=== PATIENT | female | born 1975 | race Caucasian/White ===

== ENCOUNTER 2023-07-16 15:59 | Emergency (ER) | payer MEDICAID, OTHER ==
[~2023-07-16] VITALS: Ht 162.6 cm; Wt 126.1 kg
[2023-07-16] MEDS ORDERED: AMLO10TA4 PO (17:27)
[2023-07-16 18:09] LABS: BASOPHILS # (AUTO) 0.1 K/UL (0.0-0.2); BASOPHILS % (AUTO) 0.9 % (0.0-2.0); EOSINOPHILS # (AUTO) 0.3 K/uL (0.0-0.7); HEMATOCRIT 34.4 % (31.2-41.9); HEMOGLOBIN 11.2 g/dL (10.9-14.3); LYMPHOCYTES # (AUTO) 1.4 K/uL (0.8-4.8); LYMPHOCYTES % (AUTO) 22.6 % (20.5-51.5); MEAN CORPUSCULAR HEMOGLOBIN 29.2 uug (24.7-32.8); MEAN CORPUSCULAR HGB CONC 33 g/dL (32.3-35.6); MEAN CORPUSCULAR VOLUME 89.6 fL (75.5-95.3); MONOCYTES # (AUTO) 0.3 K/uL (0.1-1.30); NEUTROPHILS # (AUTO) 4.1 K/uL (1.8-8.9); NEUTROPHILS % (AUTO) 66.5 % (38.5-71.5); PLATELET COUNT (AUTO) 138 K/uL (179-408); RED BLOOD CELL COUNT(AUTO) 3.84 MIL/uL (3.63-4.92); RED CELL DISTRIBUTION WIDTH 14.3 % (12.3-17.7); WHITE BLOOD COUNT (AUTO) 6.2 K/uL (3.8-11.8)
[2023-07-16 18:18] LABS: CALCIUM 9.1 mg/dL (8.5-10.1); CARBON DIOXIDE 30 mmol/L (21-32); CHLORIDE 104 mmol/L (98-107); CREATININE 0.9 mg/dL (0.6-1.3); GLUCOSE 187 mg/dL (74-106); POTASSIUM 3.7 mmol/L (3.5-5.1); SODIUM SERUM 140 mmol/L (136-145); UREA NITROGEN, BLOOD 17 mg/dL (7-18)
[2023-07-16 18:35] LABS: ALANINE AMINOTRANSFERASE 28 U/L (14-59); ALBUMIN 3.2 g/dL (3.4-5.0); ALKALINE PHOSPHATASE 68 U/L (50-136); ASPARTATE AMINOTRANSFERASE 14 U/L (15-37); BILIRUBIN,DIRECT 0.1 mg/dL (0.0-0.2); BILIRUBIN,TOTAL 0.2 mg/dL (0.2-1.0); NT-PRO BNP 91 pg/mL (0-125); TOTAL PROTEIN, SERUM 6.8 g/dL (6.4-8.2)
[2023-07-16] MEDS ORDERED: METF-494 PO (19:03)
[2023-07-16] MEDS ORDERED: ENAL20TA70 PO (19:03)
[2023-07-16] MEDS ORDERED: FURO-152 PO (19:03)
[2023-07-16] MEDS ORDERED: POTA-194 PO (19:03)
[2023-07-16] MEDS ORDERED: CLON0.1T PO (19:03)
[2023-07-16 20:01] VITALS: BP 158/90; O2SAT 98
== END 2023-07-16 20:01 | disposition home or self-care (01) ==
LOC: ER 15:59
DX: R60.0 Localized edema (principal); R10.2 Pelvic and perineal pain; E11.65 Type 2 diabetes mellitus with hyperglycemia; I10 Essential (primary) hypertension; E66.9 Obesity, unspecified; Z68.42 Body mass index [BMI] 45.0-49.9, adult; Z79.899 Other long term (current) drug therapy
CPT/HCPCS: 36415; 71045; 84484; 85025; 85730; 93005; A4663

== ENCOUNTER 2023-07-25 05:15 | Inpatient (IN) | payer OTHER ==
[~2023-07-25] VITALS: Ht 162.6 cm; Wt 79.4 kg
[~2023-07-25 05:15] MED LIST: AMLO10TA4 PO; CLON0.1T PO; ENAL20TA70 PO; FURO-152 PO; METF-494 PO; POTA-194 PO
[2023-07-25] MEDS ORDERED: ONDANSETRON 4 MG/2 ML VIAL IV ONE (05:45)
[2023-07-25] MEDS ORDERED: CLONIDINE HCL 0.1 MG TABLET PO ONE (05:45)
[2023-07-25] MEDS ORDERED: hydrALAZINE HCL 20 MG/1 ML VIAL IV ONE (05:45)
[2023-07-25] MEDS ORDERED: NITROGLYCERIN OINT 1 GM PACKET TP ONE ×2 (05:45→05:57)
[2023-07-25] MEDS ORDERED: HYDROMORPHONE 1 MG/1 ML DISP.SYRIN IV ONE (05:45)
[2023-07-25] MEDS ORDERED: FUROSEMIDE 20 MG/2 ML VIAL IVP ONE (05:45)
[2023-07-25] MEDS ORDERED: ONDANSETRON 4 MG/2 ML VIAL ONE (05:57)
[2023-07-25] MEDS ORDERED: FUROSEMIDE 40 MG/4 ML VIAL ONE (05:57)
[2023-07-25] MEDS ORDERED: hydrALAZINE HCL 20 MG/1 ML VIAL ONE (05:58)
[2023-07-25] MEDS ORDERED: CLONIDINE HCL 0.1 MG TABLET ONE (05:58)
[2023-07-25] MEDS ORDERED: HYDROMORPHONE 1 MG/1 ML DISP.SYRIN ONE (05:58)
[2023-07-25] MEDS ORDERED: FLAS1KIT2 TP (06:23)
[2023-07-25] MEDS ORDERED: CLON0.1T PO (06:23)
[2023-07-25] MEDS ORDERED: FLAS1EAC2 TP (06:23)
[2023-07-25] MEDS ORDERED: LISI40TA13 PO (06:23)
[2023-07-25 06:25] VITALS: O2SAT 96
[2023-07-25 06:30] LABS: BASOPHILS # (AUTO) 0.1 K/UL (0.0-0.2); BASOPHILS % (AUTO) 1.4 % (0.0-2.0); EOSINOPHILS # (AUTO) 0.3 K/uL (0.0-0.7); EOSINOPHILS % (AUTO) 6.4 % (0.0-7.0); HEMOGLOBIN 11.5 g/dL (10.9-14.3); LYMPHOCYTES # (AUTO) 1.1 K/uL (0.8-4.8); LYMPHOCYTES % (AUTO) 20.8 % (20.5-51.5); MEAN CORPUSCULAR HEMOGLOBIN 29.3 uug (24.7-32.8); MEAN CORPUSCULAR HGB CONC 33 g/dL (32.3-35.6); MEAN CORPUSCULAR VOLUME 89.6 fL (75.5-95.3); MONOCYTES # (AUTO) 0.4 K/uL (0.1-1.30); NEUTROPHILS # (AUTO) 3.4 K/uL (1.8-8.9); NEUTROPHILS % (AUTO) 63.4 % (38.5-71.5); PLATELET COUNT (AUTO) 130 K/uL (179-408); RED CELL DISTRIBUTION WIDTH 14.4 % (12.3-17.7); WHITE BLOOD COUNT (AUTO) 5.3 K/uL (3.8-11.8)
[2023-07-25] MEDS ORDERED: IPRATROPIUM BROMIDE 0.5 MG/2.5 ML NEBU NEB ONE (06:30)
[2023-07-25] MEDS ORDERED: ALBUTEROL SULFATE 2.5 MG/3 ML NEBU NEB ONE (06:30)
[2023-07-25] MEDS ORDERED: ALBUTEROL SULFATE 2.5 MG/3 ML NEBU ONE (06:34)
[2023-07-25] MEDS ORDERED: IPRATROPIUM BROMIDE 0.5 MG/2.5 ML NEBU ONE (06:34)
[2023-07-25 06:38] LABS: CALCIUM 9.1 mg/dL (8.5-10.1); CARBON DIOXIDE 29 mmol/L (21-32); CHLORIDE 102 mmol/L (98-107); CREATININE 0.7 mg/dL (0.6-1.3); GLUCOSE 148 mg/dL (74-106); POTASSIUM 3.7 mmol/L (3.5-5.1); SODIUM SERUM 136 mmol/L (136-145); UREA NITROGEN, BLOOD 8 mg/dL (7-18)
[2023-07-25 06:41] LABS: DIFFERENTIAL COMMENT 1
[2023-07-25 06:50] VITALS: O2SAT 99
[2023-07-25 06:51] LABS: ALANINE AMINOTRANSFERASE 23 U/L (14-59); ALBUMIN 3.5 g/dL (3.4-5.0); ALKALINE PHOSPHATASE 69 U/L (50-136); ASPARTATE AMINOTRANSFERASE 7 U/L (15-37); BILIRUBIN,DIRECT 0.1 mg/dL (0.0-0.2); BILIRUBIN,TOTAL 0.5 mg/dL (0.2-1.0); NT-PRO BNP 74 pg/mL (0-125); TOTAL PROTEIN, SERUM 7.1 g/dL (6.4-8.2)
[2023-07-25 07:36] LABS: *BILIRUBIN,URIN NEGATIVE (NEGATIVE); *BLOOD, URINE NEGATIVE (NEGATIVE); *CLARITY,URINE CLEAR (CLEAR); *COLOR,URINE YELLOW (YELLOW); *KETONES,URINE NEGATIVE (NEGATIVE); *PROTEIN,URINE NEGATIVE (NEGATIVE); *UROBILINOGEN,URINE 0.2 E.U./dl (NORMAL); LEUKOCYTE ESTERASE ,URINE NEGATIVE (NEGATIVE); NITRITE, URINE NEGATIVE (NEGATIVE); PH,URINE 6.5 (5.0-8.0); UGLUCOSE NEGATIVE (NEGATIVE)
[2023-07-25 07:50] LABS: *AMPHETAMINE, URINE NEGATIVE (NEGATIVE); *BARBITURATE, URINE NEGATIVE (NEGATIVE); *BENZODIAZEPINE, URINE NEGATIVE (NEGATIVE); *CANNABINOID, URINE NEGATIVE (NEGATIVE); *COCCAINE, URINE NEGATIVE (NEGATIVE); *OPIATE, URINE NEGATIVE (NEGATIVE); *PHENCYCLIDINE SCREEN,URINE NEGATIVE (NEGATIVE); FENTANYL, URINE NEGATIVE (NEGATIVE)
[2023-07-25] MEDS ORDERED: ACETAMINOPHEN 325 MG TABLET PO ONE (11:30)
[2023-07-25] MEDS ORDERED: ACETAMINOPHEN ES 500 MG TABLET ONE (11:41)
[2023-07-25] MEDS ORDERED: ACETAMINOPHEN 325 MG TABLET PO PRN (12:00)
[2023-07-25] MEDS ORDERED: Medication Not On Formulary EA (Metformin Hcl (Metformin Hcl Er) 1 TAB) PO SCH (12:00)
[2023-07-25] MEDS ORDERED: CLONIDINE HCL 0.1 MG TABLET PO PRN ×2 (12:00→16:28)
[2023-07-25] MEDS ORDERED: TEMAZEPAM 15 MG CAPSULE PO PRN (12:00)
[2023-07-25] MEDS ORDERED: ONDANSETRON 4 MG/2 ML VIAL IV PRN (12:00)
[2023-07-25] MEDS ORDERED: HYDROCODONE/APAP 5-325MG TABLET PO PRN (12:00)
[2023-07-25] MEDS ORDERED: ALBUTEROL SULFATE 2.5 MG/ 0.5 ML NEBU NEB PRN (15:00)
[2023-07-25] MEDS ORDERED: GUAIFENESIN/DEXTROMETHORPHAN 5 ML UDC PO PRN (15:00)
[2023-07-25 15:45] VITALS: BP 138/81; TEMP 98.2; O2SAT 97
[2023-07-25] MEDS: FUROSEMIDE 20 MG TABLET PO SCH (16:37)
[2023-07-25] MEDS: AMLODIPINE 10 MG TABLET PO SCH (16:37)
[2023-07-25] MEDS: POTASSIUM CHLORIDE 20 MEQ TAB.PRT.SR PO SCH (16:37)
[2023-07-25] MEDS: LISINOPRIL 20 MG TABLET PO SCH (16:37)
[2023-07-25] MEDS ORDERED: levoFLOXacin 500 MG/D5W 500 MG in PREMIXED 1 EACH IV SCH (20:15)
[2023-07-25 20:44] VITALS: BP 146/91; TEMP 98.3; O2SAT 97
[2023-07-25] MEDS ORDERED: DOCUSATE SODIUM 250 MG CAPSULE PO SCH (21:00)
[2023-07-25] MEDS ORDERED: DOCUSATE SODIUM 100 MG CAPSULE PO SCH (21:00)
[2023-07-25] MEDS ORDERED: levoFLOXacin 500 MG/D5W 100 ML ONE (21:03)
[2023-07-25] MEDS: methylPREDNISolone SOD SUCC 40 MG/ML VIAL IV SCH (21:13)
[2023-07-26 04:55] VITALS: BP 164/76; TEMP 98.2; O2SAT 95
[2023-07-26] MEDS: methylPREDNISolone SOD SUCC 40 MG/ML VIAL IV SCH (06:05)
[2023-07-26 06:42] LABS: BASOPHILS % (AUTO) 0.3 % (0.0-2.0); EOSINOPHILS % (AUTO) 0.1 % (0.0-7.0); HEMATOCRIT 38.9 % (31.2-41.9); HEMOGLOBIN 12.7 g/dL (10.9-14.3); LYMPHOCYTES # (AUTO) 0.9 K/uL (0.8-4.8); LYMPHOCYTES % (AUTO) 16.9 % (20.5-51.5); MEAN CORPUSCULAR HEMOGLOBIN 29.1 uug (24.7-32.8); MEAN CORPUSCULAR HGB CONC 33 g/dL (32.3-35.6); MEAN CORPUSCULAR VOLUME 89.4 fL (75.5-95.3); MONOCYTES # (AUTO) 0.1 K/uL (0.1-1.30); MONOCYTES % (AUTO) 1.5 % (0.0-11.0); NEUTROPHILS # (AUTO) 4.5 K/uL (1.8-8.9); NEUTROPHILS % (AUTO) 81.2 % (38.5-71.5); PLATELET COUNT (AUTO) 156 K/uL (179-408); RED BLOOD CELL COUNT(AUTO) 4.35 MIL/uL (3.63-4.92); RED CELL DISTRIBUTION WIDTH 14.1 % (12.3-17.7); WHITE BLOOD COUNT (AUTO) 5.6 K/uL (3.8-11.8)
[2023-07-26 07:00] LABS: DIFFERENTIAL COMMENT 1
[2023-07-26] MEDS ORDERED: PANTOPRAZOLE SODIUM 40 MG TABLET.DR PO SCH (07:00)
[2023-07-26 07:10] LABS: THYROID STIMULATING HORMONE 0.351 mIU/mL (0.358-3.740)
[2023-07-26 07:54] LABS: ALBUMIN 3.6 g/dL (3.4-5.0); BILIRUBIN,TOTAL 0.4 mg/dL (0.2-1.0); CALCIUM 9.4 mg/dL (8.5-10.1); CREATININE 0.8 mg/dL (0.6-1.3); MAGNESIUM 1.9 mg/dL (1.8-2.4); PHOSPHOROUS 3.2 mg/dL (2.5-4.9); POTASSIUM 4.2 mmol/L (3.5-5.1); TOTAL PROTEIN, SERUM 7.7 g/dL (6.4-8.2)
[2023-07-26] MEDS: AMLODIPINE 10 MG TABLET PO SCH (08:09)
[2023-07-26] MEDS: POTASSIUM CHLORIDE 20 MEQ TAB.PRT.SR PO SCH (08:09)
[2023-07-26] MEDS: LISINOPRIL 20 MG TABLET PO SCH (08:09)
[2023-07-26] MEDS: FUROSEMIDE 20 MG TABLET PO SCH (08:09)
[2023-07-26] MEDS ORDERED: FUROSEMIDE 20 MG/2 ML VIAL IV ONE (09:00)
[2023-07-26] MEDS ORDERED: AMOXICILLIN-CLAVUL 875-125MG TABLET PO SCH (09:00)
[2023-07-26] MEDS ORDERED: METFORMIN XR 500 MG TAB.SR.24H PO SCH (09:00)
[2023-07-26 11:30] VITALS: BP 150/91; TEMP 98.7; O2SAT 96
[2023-07-26] MEDS ORDERED: AMOX1TAB16 PO (12:16)
[2023-07-26] MEDS ORDERED: METH4TAB3 PO (12:16)
[2023-07-26] MEDS ORDERED: ALBU8.5H8 INH (12:16)
== END 2023-07-26 13:20 | disposition home or self-care (01) | DRG 145 ==
LOC: ER 05:19 → TELE3 14:36 → MEDSURG3 15:50
PROVIDERS: ADMIT Internal Medicine; ATTEND Internal Medicine
DX: J20.9 Acute bronchitis, unspecified (principal); I11.0 Hypertensive heart disease with heart failure; J44.0 Chronic obstructive pulmonary disease with (acute) lower respiratory infection; J45.901 Unspecified asthma with (acute) exacerbation; I50.9 Heart failure, unspecified; B96.89 Other specified bacterial agents as the cause of diseases classified elsewhere; E66.9 Obesity, unspecified; E11.65 Type 2 diabetes mellitus with hyperglycemia; F12.90 Cannabis use, unspecified, uncomplicated; F17.200 Nicotine dependence, unspecified, uncomplicated; Z68.30 Body mass index [BMI] 30.0-30.9, adult; J32.8 Other chronic sinusitis; Z86.73 Personal history of transient ischemic attack (TIA), and cerebral infarction without residual deficits; Z79.899 Other long term (current) drug therapy; Z79.84 Long term (current) use of oral hypoglycemic drugs; R60.0 Localized edema
CPT/HCPCS: 36415; 71045; 83605; 83735; 84100; 84443; 84484; 85025; 93005; 93307; A9150; G0378; J0360; J1170; J1940; J1956; J2405; J2920; J3590